=== PATIENT | male | born 1990 | race Caucasian/White ===

== ENCOUNTER 2023-02-24 10:32 | Emergency (ER) | payer SELFPAY ==
--- NOTE | ~2023-02-24 | XR_ITS ---
EXAMINATION: XR CHEST CLINICAL INFORMATION: Cough with green phlegm and question of pneumonia COMPARISON: None available. TECHNIQUE: Frontal view of the chest was obtained. FINDINGS: No significant abnormality is noted involving the heart, lungs, mediastinum, bony thorax or soft tissues. XR/XR chest 1V IMPRESSION: Unremarkable examination.
[2023-02-24 10:44] VITALS: BP 122/64; PULSE 91; RESP 20; TEMP 36.9; O2SAT 97; BMI 44.0
--- NOTE | 2023-02-24 10:50 | ECG_ITS ---
Test Reason : PLURISY Blood Pressure : / mmHG Vent. Rate : 088 BPM Atrial Rate : 088 BPM P-R Int : 168 ms QRS Dur : 098 ms QT Int : 354 ms P-R-T Axes : 043 040 004 degrees QTc Int : 428 ms Normal sinus rhythm Inferior infarct , age undetermined Abnormal ECG No previous ECGs available Referred By: Colin Rivera Electronically Signed By:HERMINIA BERMAN
--- NOTE | 2023-02-24 10:52 | ED.GENADULT ---
HPI - General Adult General Chief complaint: Upper Respiratory Symptoms Stated complaint: chest pain, hard to breathe Time Seen by Provider: 02/24/23 10:37 Source: patient Mode of arrival: ambulatory Limitations: no limitations History of Present Illness HPI narrative: 32-year-old male with history of asthma presents due to the ED for 2 weeks of chest tightness/shortness of breath, coughing up green phlegm, and some pleurisy. Patient states no improvement with albuterol pump. Patient denies any leg swelling, pleurisy, calf pain, recent long travel, recent surgery, or estrogen hormone use. Related Data Previous Rx's Medication Instructions Recorded benzonatate 150 mg capsule 150 mg PO TID PRN cough 5 days #15 02/24/23 caps prednisone 20 mg tablet 40 mg PO DAILY 5 days #10 tabs 02/24/23 Allergies Allergy/AdvReac Type Severity Reaction Status Date / Time cat dander [CATS] Allergy Intermediate SHORTNESS Verified 02/24/23 10:50 OF BREATH egg [EGG] Allergy Mild ITCHING Verified 02/24/23 10:50 Review of Systems Review of Systems: chest tightness, coughing, green phleghm Yes all other systems are reviewed and are negative PMFSH Social History Social History Advance Directives: No Advance Directives Information Provided: No Physical Exam ED Vital Signs: Vital Signs - 24 hr 02/24/23 10:44 02/24/23 11:13 02/24/23 13:13 Temperature 98.5 F Pulse Rate 91 94 87 Respiratory Rate 20 20 18 Blood Pressure 122/64 Pulse Oximetry 97 Oxygen Delivery Method Room Air BMI result Body Mass Index 44.0 Const General: cooperative, healthy appearing, comfortable, no acute distress, well developed, alert, awake and Physically active Orientation/consciousness: oriented to person, oriented to place, oriented to time and patient oriented x3 HENMT Head: Yes normal to inspection, Yes No palpable skull fracture present, Yes normocephalic, Yes atraumatic and No abrasion Eyes General: appearance normal, both eyes and all related structures Neck Neck: Yes normal visual inspection, Yes full ROM, Yes no lymphadenopathy, Yes no meningeal signs, Yes trachea midline, Yes supple, No anterior neck swelling and No tender Chest Chest palpation & inspection: normal inspection of the chest and normal palpation of entire chest wall Resp Effort & Inspection: normal respiratory effort and able to speak in complete sentences Auscultation: wheezes expiratory wheezes and throughout Cardio Jugular venous distension: no JVD Heart sounds: S1 normal heart sound present and S2 normal heart sound present GI Inspection: Yes normal to inspection and No abdominal wall ecchymosis Palpation (GI): Soft to palpation, not firm, nontender, no guarding and not rigid General: No CVA tenderness and Yes no CVA tenderness Back/Spine/Pelvis Back: no CVA tenderness, No CVA tenderness and No back tenderness Skin General skin exam: no rashes or lesions noted and elasticity normal Neuro General: oriented to person, oriented to place, oriented to time, patient oriented x3, gait normal, tone normal, moves all extremities, Normal light touch and pain sensation, no meningeal signs, no focal motor deficits, CN's II-XI intact bilaterally and normal sensation to monofilament Extrem Other: Lower extremities negative for swelling, pain edema, calf tenderness. General: Yes normal to inspection and Yes full ROM Psych Appearance: grossly normal, well kempt and not disheveled Course Course Course Narrative: History physical exam indicate most likely URI but due to pleurisy will do D-dimer EKG and labs. DuoNeb and steroids ordered. Reevaluation(s) Reevaluation #1: Patient's wheezing resolved after receiving DuoNeb and steroids. BNP negative. Chest xray is normal. COVID influenza negative. Patient feels better. D-dimer 230 and upper normal of limit for D-dimer is 242 which makes it negative. Perc score 0. Patient will be discharged with albuterol inhaler and steroids. Patient educated on stop smoking. Time: 12:59 Medications Administered Discontinued Medications Generic Name Dose Route Start Last Admin Trade Name Akila PRN Reason Stop Dose Admin Albuterol Sulfate 4 puff 02/24/23 12:59 02/24/23 13:12 Albuterol Sulfate 90 Mcg 8 Gm Inhaler INHALE 02/24/23 13:00 4 puff ONCE ONE Administration Albuterol/Ipratropium 3 ml 02/24/23 10:50 02/24/23 11:12 Albuterol/Iprat 2.5/0.5mg 3 Ml Ampul.Neb INHALE 02/24/23 10:51 3 ml ONCE ONE Administration Prednisone 60 mg 02/24/23 10:50 02/24/23 11:20 Prednisone 20 Mg Tablet PO 02/24/23 10:51 60 mg ONCE ONE Administration Medical Decision Making Medical Decision Making [facility] Narrative: 32-year-old male presents to the ED for URI symptoms consisting of coughing, chest tightness, wheezing, green phlegm for the past 2 weeks with some pleurisy. Negative for any calf pain, leg swelling, recent long travel, recent surgery. Patient denies any recent trauma. Lungs positive for diffuse expiratory wheezing which resolved with DuoNeb and steroids. EKG negative STEMI. Troponin negative. D-dimer negative. Perc score 0. Patient given albuterol inhaler with spacer from a Respiratory therapist. Will be discharged with steroids Differential Diagnosis Differential Diagnoses: The differential diagnosis associated with the presentation includes (Asthma, pneumonia, pulmonary embolus, CHF, bronchitis) Admission/Observation Consideration of admission/observation: Escalation of care including admission/observation considered Lab Data [facility] Lab Attestation statement: I reviewed the patient's lab results. 02/24/23 11:17 02/24/23 11:17 Labs: Lab Results 02/24/23 02/24/23 02/24/23 Range/Units 11:17 11:17 11:17 WBC 11.2 H (4.8-10.8) X10*3/uL RBC 5.39 (4.60-5.80) X10*6/uL Hgb 15.3 (14.0-18.0) g/dl Hct 45.4 (42.0-52.0) % MCV 84.2 (80.0-98.0) fL MCH 28.4 (27.0-33.0) pg MCHC 33.7 (31.0-36.0) g/dl RDW 12.8 (11.0-16.0) % Plt Count 207 (160-400) X10*3/uL MPV 10.6 (9.4-12.4) fL Immature Gran % (Auto) 0.3 (0.0-0.4) % Neut % (Auto) 64.1 (45-73) % Lymph % (Auto) 21.3 (20-40) % Mora % (Auto) 7.8 (2-11) % Eos % (Auto) 6.1 H (0-4) % Baso % (Auto) 0.4 (0-2) % Lymph # (Auto) 2.4 (1.2-4.9) X10*3/uL Mora # (Auto) 0.9 (0.1-1.2) X10*3/uL Eos # (Auto) 0.7 H (0.0-0.4) X10*3/uL Baso # (Auto) 0.1 (0.0-0.2) X10*3/uL Abs Immat Gran (auto) 0.03 (0.00-0.03) X10*3/uL Absolute Neuts (auto) 7.2 (2.0-8.3) x10*3/uL Absolute Nucleated RBC 0.000 (0.0-0.012) X10*3/uL Nucleated RBC % (auto) 0.0 (0.0-0.2) /100WBC PT 11.5 (10.0-13.1) SEC INR 1.0 (0.9-1.1) APTT 34.2 (26.0-36.4) SEC D-Dimer High Sensitivty 230 NG/ML Sodium 139 (135-145) mmol/L Potassium 3.8 (3.3-5.1) mmol/L Chloride 106 (96-108) mmol/L Carbon Dioxide 26 (22-29) mmol/L Anion Gap 11 L (12-20) BUN 8 L (9-16) mg/dL Creatinine 0.71 (0.5-1.4) mg/dL Estim Creat Clear Calc 176.6 Estimated GFR > 60 Random Glucose 102 (60-115) mg/dL Calcium 8.9 (8.4-10.2) mg/dL Total Bilirubin 0.6 (0.0-1.0) mg/dL AST 21 (5-37) U/L ALT 47 H (0-40) U/L Alkaline Phosphatase 91 (39-117) U/L Troponin I High Sens (<3.5-35.0) ng/L B-Natriuretic Peptide (<100) pg/mL Total Protein 7.9 (6.5-8.0) g/dL Albumin 4.3 (3.5-5.0) g/dL COVID-19 (JOSE DANIEL) (Negative) COVID-19 Clin Com Influenza Type A (SHRUTI) (Negative) Influenza Type B (SHRUTI) (Negative) Influenza A & B Note 06/22/23 06/22/23 06/22/23 Range/Units 11:17 11:17 11:17 WBC (4.8-10.8) X10*3/uL RBC (4.60-5.80) X10*6/uL Hgb (14.0-18.0) g/dl Hct (42.0-52.0) % MCV (80.0-98.0) fL MCH (27.0-33.0) pg MCHC (31.0-36.0) g/dl RDW (11.0-16.0) % Plt Count (160-400) X10*3/uL MPV (9.4-12.4) fL Immature Gran % (Auto) (0.0-0.4) % Neut % (Auto) (45-73) % Lymph % (Auto) (20-40) % Mora % (Auto) (2-11) % Eos % (Auto) (0-4) % Baso % (Auto) (0-2) % Lymph # (Auto) (1.2-4.9) X10*3/uL Mora # (Auto) (0.1-1.2) X10*3/uL Eos # (Auto) (0.0-0.4) X10*3/uL Baso # (Auto) (0.0-0.2) X10*3/uL Abs Immat Gran (auto) (0.00-0.03) X10*3/uL Absolute Neuts (auto) (2.0-8.3) x10*3/uL Absolute Nucleated RBC (0.0-0.012) X10*3/uL Nucleated RBC % (auto) (0.0-0.2) /100WBC PT (10.0-13.1) SEC INR (0.9-1.1) APTT (26.0-36.4) SEC D-Dimer High Sensitivty NG/ML Sodium (135-145) mmol/L Potassium (3.3-5.1) mmol/L Chloride (96-108) mmol/L Carbon Dioxide (22-29) mmol/L Anion Gap (12-20) BUN (9-16) mg/dL Creatinine (0.5-1.4) mg/dL Estim Creat Clear Calc Estimated GFR Random Glucose (60-115) mg/dL Calcium (8.4-10.2) mg/dL Total Bilirubin (0.0-1.0) mg/dL AST (5-37) U/L ALT (0-40) U/L Alkaline Phosphatase (39-117) U/L Troponin I High Sens < 2.7 (<3.5-35.0) ng/L B-Natriuretic Peptide 15 (<100) pg/mL Total Protein (6.5-8.0) g/dL Albumin (3.5-5.0) g/dL COVID-19 (JOSE DANIEL) (Negative) COVID-19 Clin Com Influenza Type A (SHRUTI) Negative (Negative) Influenza Type B (SHRUTI) Negative (Negative) Influenza A & B Note See Note 02/24/23 Range/Units 11:17 WBC (4.8-10.8) X10*3/uL RBC (4.60-5.80) X10*6/uL Hgb (14.0-18.0) g/dl Hct (42.0-52.0) % MCV (80.0-98.0) fL MCH (27.0-33.0) pg MCHC (31.0-36.0) g/dl RDW (11.0-16.0) % Plt Count (160-400) X10*3/uL MPV (9.4-12.4) fL Immature Gran % (Auto) (0.0-0.4) % Neut % (Auto) (45-73) % Lymph % (Auto) (20-40) % Mora % (Auto) (2-11) % Eos % (Auto) (0-4) % Baso % (Auto) (0-2) % Lymph # (Auto) (1.2-4.9) X10*3/uL Mora # (Auto) (0.1-1.2) X10*3/uL Eos # (Auto) (0.0-0.4) X10*3/uL Baso # (Auto) (0.0-0.2) X10*3/uL Abs Immat Gran (auto) (0.00-0.03) X10*3/uL Absolute Neuts (auto) (2.0-8.3) x10*3/uL Absolute Nucleated RBC (0.0-0.012) X10*3/uL Nucleated RBC % (auto) (0.0-0.2) /100WBC PT (10.0-13.1) SEC INR (0.9-1.1) APTT (26.0-36.4) SEC D-Dimer High Sensitivty NG/ML Sodium (135-145) mmol/L Potassium (3.3-5.1) mmol/L Chloride (96-108) mmol/L Carbon Dioxide (22-29) mmol/L Anion Gap (12-20) BUN (9-16) mg/dL Creatinine (0.5-1.4) mg/dL Estim Creat Clear Calc Estimated GFR Random Glucose (60-115) mg/dL Calcium (8.4-10.2) mg/dL Total Bilirubin (0.0-1.0) mg/dL AST (5-37) U/L ALT (0-40) U/L Alkaline Phosphatase (39-117) U/L Troponin I High Sens (<3.5-35.0) ng/L B-Natriuretic Peptide (<100) pg/mL Total Protein (6.5-8.0) g/dL Albumin (3.5-5.0) g/dL COVID-19 (JOSE DANIEL) Negative (Negative) COVID-19 Clin Com See Note Influenza Type A (SHRUTI) (Negative) Influenza Type B (SHRUTI) (Negative) Influenza A & B Note Independent Interpretation I performed an independent interpretation of an: EKG (Normal sinus rhythm. Ventricular rate 88. [place] interval 168. QRS 98. QTC 428. Negative STEMI) and Plain X-Ray Radiology Impression Discussion of test interpretation with radiology: I have reviewed the radiologist's reading. Prescription Management I considered prescription management with: Other (Prednisone Tessalon Perles) Discharge Plan Discharge Clinical Impression: Asthma Patient Disposition: Home, Self-Care Instructions: Asthma (DC) Additional Instructions: Continue using the albuterol inhaler UA given by our respiratory therapists as prescribed 2 puffs every 4-6 hours as needed. You will be discharged with steroids and cough medication. Return to the ED immediately for any leg swelling, calf pain, coughing up blood, chest pain on inspiration, fever, chills, fever, chills, chest pain, shortness of breath, abdominal pain, or any other concerning symptoms. Please follow-up with primary care provider. Recommend stop smoking. Prescriptions: New prednisone 20 mg tablet 40 mg PO DAILY 5 Days Qty: 10 0RF benzonatate 150 mg capsule 150 mg PO TID PRN (Reason: cough) 5 Days Qty: 15 0RF Stand Alone Forms: Work/School Release Interventions: ED Discharge Assessment Last Done: 02/24/23 13:54 Discharge Date/Time: 02/24/23 13:55 Print Language: Mexican
[2023-02-24] MEDS: Albuterol/Iprat 2.5/0.5MG 3 ML AMPUL.NEB INHALE (11:12)
[2023-02-24 11:13] VITALS: PULSE 94; RESP 20; O2SAT 99
[2023-02-24] MEDS: predniSONE 20 MG TABLET 60 MG PO (11:20)
[2023-02-24 11:21] LABS: MANUAL DIFF FLAG NO
[2023-02-24 11:25] LABS: Basophils Absolute Auto 0.1 X10*3/uL (0.0-0.2); Basophils Percent Auto 0.4 % (0-2); Eosinophils Absolute Auto 0.7 X10*3/uL (0.0-0.4); Eosinophils Percent Auto 6.1 % (0-4); Hematocrit 45.4 % (42.0-52.0); Hemoglobin 15.3 g/dl (14.0-18.0); Imm Gran Abs Auto 0.03 X10*3/uL (0.00-0.03); Imm Gran Pct Auto 0.3 % (0.0-0.4); Lymphocytes Absolute Auto 2.4 X10*3/uL (1.2-4.9); Lymphocytes Percent Auto 21.3 % (20-40); Mean Corpuscular HGB Conc 33.7 g/dl (31.0-36.0); Mean Corpuscular Hemoglobin 28.4 pg (27.0-33.0); Mean Corpuscular Volume 84.2 fL (80.0-98.0); Mean Platelet Volume 10.6 fL (9.4-12.4); Monocytes Absolute Auto 0.9 X10*3/uL (0.1-1.2); Monocytes Percent Auto 7.8 % (2-11); Neutrophils Absolute Auto 7.2 x10*3/uL (2.0-8.3); Neutrophils Percent Auto 64.1 % (45-73); Platelet Count 207 X10*3/uL (160-400); Red Blood Count 5.39 X10*6/uL (4.60-5.80); Red Cell Distribution Width 12.8 % (11.0-16.0); White Blood Count 11.2 X10*3/uL (4.8-10.8)
[2023-02-24 11:35] LABS: Prothrombin Time 11.5 SEC (10.0-13.1)
[2023-02-24 11:37] LABS: D Dimer High Sensitivity 230 NG/ML
[2023-02-24 11:38] LABS: Partial Thromboplastin Time 34.2 SEC (26.0-36.4)
[2023-02-24 11:41] LABS: COVID-19 Test Negative (Negative); IDNOW Serial# 08D9AD1C; IDNOW Serial# BCCEAD1C; Influenza A Negative (Negative); Influenza B2 Negative (Negative)
[2023-02-24 11:53] LABS: Alanine Aminotransferase 47 U/L (0-40); Albumin Level 4.3 g/dL (3.5-5.0); Alkaline Phosphatase 91 U/L (39-117); Anion Gap 11 (12-20); Aspartate Amino Transferase 21 U/L (5-37); Bilirubin Total 0.6 mg/dL (0.0-1.0); Blood Urea Nitrogen 8 mg/dL (9-16); Calcium 8.9 mg/dL (8.4-10.2); Carbon Dioxide 26 mmol/L (22-29); Chloride 106 mmol/L (96-108); Creatinine Clr Calc Pharmacy 176.6; Estimated Glomerular Filt Rate > 60; Glucose Random 102 mg/dL (60-115); Potassium 3.8 mmol/L (3.3-5.1); Sodium 139 mmol/L (135-145); Total Protein 7.9 g/dL (6.5-8.0)
[2023-02-24 11:54] LABS: B Type Natriuretic Peptide 15 pg/mL (<100)
[2023-02-24 12:00] LABS: Troponin-I High Sensitivity < 2.7 ng/L (<3.5-35.0)
[2023-02-24] MEDS: Albuterol Sulfate 90 MCG 8 GM INHALER 4 PUFF INHALE (13:12)
[2023-02-24 13:13] VITALS: PULSE 87; RESP 18; O2SAT 96
== END 2023-02-24 13:55 | disposition home or self-care (01) ==
PROVIDERS: Physician Assistant; Emergency Provider Student in an Organized Health Care Education/Training Program
DX: J45.909 Unspecified asthma, uncomplicated (principal); R06.02 Shortness of breath; Z20.822 Contact with and (suspected) exposure to COVID-19
CPT/HCPCS: 36415; 71045; 80053; 83880; 84484; 85025; 85379; 85610; 85730; 87502; 87635; 93005; 94640; 99284

== ENCOUNTER 2025-01-03 09:04 | Emergency (ER) | payer MEDICAID, SELFPAY ==
[2025-01-03 09:05] VITALS: BP 120/77; PULSE 86; RESP 16; TEMP 36.5; O2SAT 97; BMI 40.0
[2025-01-03 09:26] LABS: MANUAL DIFF FLAG NO
[2025-01-03 09:30] LABS: Appearance Urine Clear; Color Urine Dark Yellow; Glucose Urine UA Negative (Negative); Leukocyte Esterase Urine Trace (Negative); Nitrite Urine Negative (Negative); Specific Gravity - Urine >= 1.030 (1.005-1.025); UMIC TRIGGER UACC YES; Urine Blood Negative (Negative); Urine Ketones Trace mg/dL (Negative); Urine Protein 30 (1+) mg/dL (Neg-Trace)
[2025-01-03 09:31] LABS: Basophils Percent Auto 0.1 % (0-2); Eosinophils Absolute Auto 0.2 X10*3/uL (0.0-0.4); Eosinophils Percent Auto 2.9 % (0-4); Hematocrit 48.5 % (42.0-52.0); Hemoglobin 16.5 g/dl (14.0-18.0); Imm Gran Abs Auto 0.02 X10*3/uL (0.00-0.03); Imm Gran Pct Auto 0.3 % (0.0-0.4); Lymphocytes Absolute Auto 1.9 X10*3/uL (1.2-4.9); Lymphocytes Percent Auto 26.3 % (20-40); Mean Corpuscular Hemoglobin 28.4 pg (27.0-33.0); Mean Corpuscular Volume 83.5 fL (80.0-98.0); Mean Platelet Volume 10.4 fL (9.4-12.4); Monocytes Absolute Auto 0.8 X10*3/uL (0.1-1.2); Monocytes Percent Auto 10.8 % (2-11); Neutrophils Absolute Auto 4.4 x10*3/uL (2.0-8.3); Neutrophils Percent Auto 59.6 % (45-73); Platelet Count 220 X10*3/uL (160-400); Red Blood Count 5.81 X10*6/uL (4.60-5.80); Red Cell Distribution Width 13.1 % (11.0-16.0); White Blood Count 7.3 X10*3/uL (4.8-10.8)
[2025-01-03 09:33] LABS: Bacteria Urine None Seen (None Seen); Hyaline Casts Urine 0-2 /LPF (0-2); RBC Urine 0-2 /HPF (0-2); Squamous Epithelial Cell Urine 0-2 /HPF (0-2); WBC Urine 0-5 /HPF (0-5)
[2025-01-03 09:48] LABS: Albumin Level 4.4 g/dL (3.5-5.0); Alkaline Phosphatase 77 U/L (39-117); Anion Gap 15 (12-20); Aspartate Amino Transferase 34 U/L (5-37); Bilirubin Total 0.8 mg/dL (0.0-1.0); Blood Urea Nitrogen 12 mg/dL (9-16); Calcium 9.2 mg/dL (8.4-10.2); Carbon Dioxide 27 mmol/L (22-29); Chloride 100 mmol/L (96-108); Creatinine Clr Calc Pharmacy 151.4; Estimated Glomerular Filt Rate > 60; Glucose Random 108 mg/dL (60-115); Lipase 9 U/L (8-78); Potassium 3.3 mmol/L (3.3-5.1); Sodium 139 mmol/L (135-145); Total Protein 7.9 g/dL (6.5-8.0)
[2025-01-03 10:14] LABS: Influenza A PCR NEGATIVE (Negative); Influenza B PCR NEGATIVE (Negative); Resp Syncy Virus RNA Qual PCR NEGATIVE (Negative); SARS COV2 PCR INHOUSE NEGATIVE (Negative)
--- NOTE | 2025-01-03 10:21 | ED.GENADULT ---
HPI - General Adult General Chief complaint: Abdominal Pain Stated complaint: vomiting Time Seen by Provider: 01/03/25 09:36 Source: patient Mode of arrival: ambulatory Limitations: no limitations History of Present Illness ED Provider: ALVIN CONTRERAS PA-C HPI narrative: 34 year-old male with pmhx of asthma presents to the ED for evaluation of abdominal pain which began yesterday morning. Admits to aching pain to epigastric region that has significantly improved since onset. No radiation. Patient reports associated N/V/D with 4 episodes of nonbloody emesis yesterday. Last episode of vomiting around 1700 last night. Patient reports last nonbloody BM this morning. Patient is able to tolerate fluids but has not had solid food since Tuesday night. He reports a subjective fever. Patient has not tried anything for his symptoms. Denies abdominal surgeries. Denies cough, SOB, urinary symptoms, flank pain, chest pain. Patient admits to smoking 2-3 cigarettes a day for the last 1.5 years and also smokes marijuana daily. Denies etoh consumption. No known sick contacts. No recent abx. No recent travel outside [place]. Related Data Previous Rx's ?Medication ?Instructions ?Recorded benzonatate 150 mg capsule 150 mg PO TID PRN cough 5 days #15 02/24/23 caps prednisone 20 mg tablet 40 mg (2 x 20 mg) PO DAILY 5 days 02/24/23 #10 tabs ondansetron 4 mg disintegrating 4 mg PO DAILY PRN nausea and 01/03/25 tablet vomiting 5 days #7 tabs Allergies Allergy/AdvReac Type Severity Reaction Status Date / Time cat dander [CATS] Allergy Intermediate SHORTNESS Verified 01/03/25 09:08 OF BREATH egg [EGG] Allergy Mild ITCHING Verified 01/03/25 09:08 Review of Systems Review of Systems: Yes all other systems are reviewed and are negative PMFSH Past Medical History Attestation statement: The following information was validated with the patient. Source: old records reviewed and nursing notes reviewed Social History Social History Advance Directives: No Advance Directives Information Provided: No Do you have a plan to hurt others: No Plan Physical Exam ED Vital Signs: Vital Signs - 24 hr 01/03/25 09:05 01/03/25 11:09 Temperature 97.7 F 97.7 F Pulse Rate 86 86 Respiratory Rate 16 16 Blood Pressure 120/77 120/77 Pulse Oximetry 97 97 Oxygen Delivery Method Room Air Room Air BMI result Body Mass Index 40.0 Vital signs stable General: Well appearing, in no acute distress. Skin: Warm, dry, intact. No rashes or lesions. Head: Normocephalic, atraumatic. EENT: Hearing is intact b/l. Conjunctiva clear. Sclera is anicteric. Neck: Supple without LAD. Cardiac: Chest wall symmetric. RRR. Lungs: Normal respiratory effort without accessory muscle use. CTA bilaterally. Abdomen: Soft, non-tender, non-distended. No rebound tenderness or guarding. Positive BS x4. Back: No midline spinous or paraspinal tenderness. No step off deformity. No CVAT Ext: Upper and lower extremities atraumatic, without tenderness, deformity, swelling or erythema. Neuro: AOx3. Normal speech. Ambulating with steady gait. Course Course Course Narrative: 1135 -- WBC WNL with no left shift. H&H stable. No electrolyte abnormalities. Kidney function WNL. Liver enzymes WNL. UA with no abnormalities requiring intervention. Negative for COVID, flu, RSV. Zofran, , Maalox given with relief of symptoms. Able to tolerate crackers and water. well appearing. no imaging warranted at this time. likely gastroenteritis. will d/c home with zofran. patient agreeable. Patient has remained stable throughout ED visit today. Discussed worrisome signs and symptoms and when to return to the ED. All questions answered at this time. Patient is agreeable with disposition and stable for discharge. Medications Administered Discontinued Medications Generic Name Dose Route Start Last Admin Trade Name Freq PRN Reason Stop Dose Admin Al Hydroxide/Mg Hydroxide 30 ml 01/03/25 10:12 01/03/25 10:44 Magnesium Hydrox/Alum Hydrox 30 Ml Oral.Susp PO 01/03/25 10:13 30 ml ONCE ONE Administration Belladonna Alkaloids/Phenobarbital 10 ml 01/03/25 10:12 01/03/25 10:44 Phenobarb/Hyoscy/Atropine/Scop 10 Ml Elixir PO 01/03/25 10:13 10 ml ONCE ONE Administration Ondansetron HCl 4 mg 01/03/25 10:21 01/03/25 10:44 Ondansetron Odt 4 Mg Tab.Dafne LIZAMA 01/03/25 10:22 4 mg ONCE ONE Administration Medical Decision Making Medical Decision Making [facility] Narrative: 34 year-old male with pmhx of asthma presents to the ED for evaluation of abdominal pain which began yesterday morning. Afebrile with normal vital signs. Patient in no acute distress, well-appearing. Abdomen is soft, nontender, non-distended. No rebound tenderness or guarding. Positive BS x4. No CVA tenderness. Differential diagnosis consists of gastroenteritis, gastritis, GERD, pancreatitis, colitis, covid, flu, RSV, UTI, anemia, electrolyte abnormality, dehydration Plan for labs, UA, zofran, Maalox, , re-evaluation > declining any IV meds/ fluids Differential Diagnosis Differential Diagnoses: The differential diagnosis associated with the presentation includes as above Admission/Observation not indicated Lab Data [facility] Lab Attestation statement: I reviewed the patient's lab results. as above 01/03/25 09:20 01/03/25 09:20 Labs: Lab Results 01/03/25 Range/Units 09:20 WBC 7.3 (4.8-10.8) X10*3/uL RBC 5.81 H (4.60-5.80) X10*6/uL Hgb 16.5 (14.0-18.0) g/dl Hct 48.5 (42.0-52.0) % MCV 83.5 (80.0-98.0) fL MCH 28.4 (27.0-33.0) pg MCHC 34.0 (31.0-36.0) g/dl RDW 13.1 (11.0-16.0) % Plt Count 220 (160-400) X10*3/uL MPV 10.4 (9.4-12.4) fL Immature Gran % (Auto) 0.3 (0.0-0.4) % Neut % (Auto) 59.6 (45-73) % Lymph % (Auto) 26.3 (20-40) % Dewitt % (Auto) 10.8 (2-11) % Eos % (Auto) 2.9 (0-4) % Baso % (Auto) 0.1 (0-2) % Lymph # (Auto) 1.9 (1.2-4.9) X10*3/uL Dewitt # (Auto) 0.8 (0.1-1.2) X10*3/uL Eos # (Auto) 0.2 (0.0-0.4) X10*3/uL Baso # (Auto) 0.0 (0.0-0.2) X10*3/uL Abs Immat Gran (auto) 0.02 (0.00-0.03) X10*3/uL Absolute Neuts (auto) 4.4 (2.0-8.3) x10*3/uL Absolute Nucleated RBC 0.000 (0.0-0.012) X10*3/uL Nucleated RBC % (auto) 0.0 (0.0-0.2) /100WBC Sodium 139 (135-145) mmol/L Potassium 3.3 (3.3-5.1) mmol/L Chloride 100 (96-108) mmol/L Carbon Dioxide 27 (22-29) mmol/L Anion Gap 15 (12-20) BUN 12 (9-16) mg/dL Creatinine 0.77 (0.5-1.4) mg/dL Estim Creat Clear Calc 151.4 Estimated GFR > 60 Random Glucose 108 (60-115) mg/dL Calcium 9.2 (8.4-10.2) mg/dL Total Bilirubin 0.8 (0.0-1.0) mg/dL AST 34 (5-37) U/L ALT 43 H (0-40) U/L Alkaline Phosphatase 77 (39-117) U/L Total Protein 7.9 (6.5-8.0) g/dL Albumin 4.4 (3.5-5.0) g/dL Lipase 9 (8-78) U/L Urine Color Dark Yellow Urine Appearance Clear Urine pH 6.0 (5.0-9.0) Ur Specific [place] >= 1.030 H (1.005-1.025) Urine Protein 30 (1+) H (Neg-Trace) mg/dL Urine Glucose (UA) Negative (Negative) mg/dL Urine Ketones Trace (Negative) mg/dL Urine Blood Negative (Negative) Urine Nitrite Negative (Negative) Ur Leukocyte Esterase Trace H (Negative) Urine RBC 0-2 (0-2) /HPF Urine WBC 0-5 (0-5) /HPF Ur Squamous Epith Cells 0-2 (0-2) /HPF Urine Bacteria None Seen (None Seen) Hyaline Casts 0-2 (0-2) /LPF Influenza Type A (PCR) NEGATIVE (Negative) Influenza Type B (PCR) NEGATIVE (Negative) RSV RNA Qual (PCR) NEGATIVE (Negative) SARS-CoV-2 RNA (RT-PCR) NEGATIVE (Negative) Prescription Management I considered prescription management with: Other (zofran) Social Determinants Patient?s care significantly limited by Social Determinants of Health including: Other Social Determinant of Health Critical Care Time Critical Care Time Critical Care Time: No Discharge Plan Discharge Clinical Impression: Gastroenteritis Patient Disposition: Home, Self-Care Instructions: Gastroenteritis (ED) Additional Instructions: Your lab workup today was reassuring.? Your urine test was negative for infection. You tested negative for COVID, flu, RSV. Your symptoms are most consistent with a viral stomach bug, also known as gastroenteritis.? The treatment for this is supportive care. Symptoms usually resolve on their own in 48-72 hours.? The recommendation is rest and lots of oral hydration.? For the next 24 hours, stick to a CARL diet (bananas rice, applesauce, tea, and toast) Zofran is an anti-nausea medication. This has been sent to your pharmacy for you to take as needed for nausea.? You can also try over the counter Pepto Bismol or Imodium as needed for upset stomach and diarrhea.? Follow up with your primary care provider this week. If you develop new or worsening symptoms call 911 or come back to the ER for further evaluation. Prescriptions: New ondansetron 4 mg tablet,disintegrating 4 mg PO DAILY PRN (Reason: nausea and vomiting) 5 Days Qty: 7 0RF No Action prednisone 20 mg tablet 40 mg PO DAILY 5 Days Qty: 10 0RF benzonatate 150 mg capsule 150 mg PO TID PRN (Reason: cough) 5 Days Qty: 15 0RF Stand Alone Forms: Work/School Release Interventions: ED Discharge Assessment Last Done: 01/03/25 11:09 Discharge Date/Time: 01/03/25 11:10 Print Language: Unable To Collect
[2025-01-03 10:28] LABS: Alanine Aminotransferase 43 U/L (0-40)
[2025-01-03] MEDS: Magnesium Hydrox/Alum Hydrox 30 ML ORAL.SUSP PO (10:44)
[2025-01-03] MEDS: PHENobarb/Hyoscy/Atropine/Scop 10 ML ELIXIR PO (10:44)
[2025-01-03] MEDS: Ondansetron ODT 4 MG TAB.RAPDIS TRANSLINGU (10:44)
[2025-01-03 11:09] VITALS: BP 120/77; PULSE 86; RESP 16; TEMP 36.5; O2SAT 97
== END 2025-01-03 11:10 | disposition home or self-care (01) ==
PROVIDERS: Emergency Provider Emergency Medicine
DX: K52.9 Noninfective gastroenteritis and colitis, unspecified (principal); R10.13 Epigastric pain; R11.2 Nausea with vomiting, unspecified; F17.210 Nicotine dependence, cigarettes, uncomplicated; Z03.818 Encounter for observation for suspected exposure to other biological agents ruled out
CPT/HCPCS: 0241U; 80053; 81001; 83690; 85025; 99283